=== PATIENT | female | born 1985 | race Caucasian/White ===

== ENCOUNTER 2018-04-28 04:37 | Emergency (ER) | payer OTHER ==
[~2018-04-28] VITALS: Ht 157.5 cm; Wt 65.8 kg
[2018-04-28] MEDS ORDERED: [UNRECOGNIZED DRUG - OTHER] (04:57)
[2018-04-28 05:38] LABS: URINE BILIRUBIN NEGATIVE (Negative); URINE BLOOD TRACE (Negative); URINE CLARITY CLEAR; URINE COLOR YELLOW; URINE GLUCOSE-RANDOM* NEGATIVE (Negative); URINE KETONES NEGATIVE (Negative); URINE PROTEIN (DIPSTICK) 1+ (Negative); URINE SPECIFIC GRAVITY 1.015 (1.005-1.035); URINE UROBILINOGEN 0.2 E.U./dl (0.2-1.0)
[2018-04-28 05:46] LABS: URINE LEUKOCYTES-REFLEX 3+ (Negative); URINE NITRITE-REFLEX POSITIVE (Negative)
[2018-04-28 05:51] LABS: CASTS None Seen /LPF (None Seen); MUCUS 0-3 Light strn/LPF (None Seen); SQUAMOUS 0-3 Few /LPF (0-3); URINE WBC-REFLEX >25 Many /HPF (0-5)
[2018-04-28 05:52] LABS: BACTERIA-REFLEX >30 Many /HPF (None Seen); CRYSTALS None Seen /LPF (None Seen); URINE RBC 3-10 Few /HPF (0-2)
[2018-04-28] MEDS ORDERED: KEFLEX500 M1 PO ×2 (06:14→06:19)
[2018-04-28 06:29] VITALS: BP 152/82
== END 2018-04-28 06:30 | disposition home or self-care (01) ==
LOC: ER 04:37
PROVIDERS: Emergency Medicine
DX: N39.0 Urinary tract infection, site not specified (principal); K59.00 Constipation, unspecified